=== PATIENT | male | born 1970 | race Caucasian/White ===

== ENCOUNTER 2024-03-16 23:44 | Emergency (ER) | payer BC ==
[~2024-03-16] VITALS: Ht 180.3 cm; Wt 129.3 kg
[2024-03-17 00:01] VITALS: BP_SYST 246; PULSE 105; RESP 20; TEMP 98.3; O2SAT 97
[2024-03-17] MEDS: LABETALOL HCL 20 MG/4 ML CARTRIDGE IVP ONE (00:22)
[2024-03-17 00:56] LABS: BARBITURATE, URINE NEGATIVE (NEG <=200); BASOPHILS # (AUTO) 0.1 K/uL (0.0-0.2); BASOPHILS % (AUTO) 0.9 % (0.0-2.0); BENZODIAZEPINE, URINE NEGATIVE (NEG <=150); EOSINOPHILS # (AUTO) 0.1 K/uL (0.0-0.4); EOSINOPHILS % (AUTO) 1.4 % (0.0-4.0); HEMATOCRIT 46.7 % (36-54); HEMOGLOBIN 16.3 g/dL (14.0-18.0); LYMPHOCYTES % (AUTO) 36.3 % (20.5-51.5); MEAN CORPUSCULAR HEMOGLOBIN 33 pg (27-31); MEAN CORPUSCULAR HGB CONC 35 % (32-36); MEAN CORPUSCULAR VOLUME 94 fL (79.0-98.0); METHAMPHETAMINES SCREEN,URINE NEGATIVE (NEG <=500); MONOCYTES # (AUTO) 0.6 K/uL (0.0-1.0); MONOCYTES % (AUTO) 7.9 % (1.7-9.3); NEUTROPHILS # (AUTO) 4.4 K/uL (1.8-7.7); NEUTROPHILS % (AUTO) 53.5 % (40.0-70.0); PLATELET COUNT (AUTO) 188 K/uL (130-430); RED BLOOD CELL COUNT(AUTO) 4.98 MIL/uL (4.2-6.2); RED CELL DISTRIBUTION WIDTH 13.6 % (9.0-15.0); URINE AMPHETAMINE NEGATIVE (NEG <=500); URINE METHADONE NEGATIVE (NEG <=200); WHITE BLOOD COUNT (AUTO) 8.2 K/uL (4.8-10.8)
[2024-03-17 00:57] LABS: CANNABINOID, URINE NEGATIVE (NEG <=50); COCAINE, URINE NEGATIVE (NEG <=150); OPIATE, URINE NEGATIVE (NEG <=100); PHENCYCLIDINE SCREEN,URINE NEGATIVE (NEG <=25); UR TRICYCLIC ANTIDEPRESSANTS NEGATIVE (NEG <=300); URINE OXYCODONE SCREEN NEGATIVE (NEG <=100)
[2024-03-17 01:06] LABS: ANION GAP 13 (5-15); CALCIUM 9.8 mg/dL (8.4-11.0); CARBON DIOXIDE 25 mmol/L (23-29); CHLORIDE 102 mmol/L (98-107); CREATININE 1.05 mg/dL (0.55-1.30); GFR AFRICAN AMERICAN 95 mL/min (>90); GFR NON AFRICAN-AMERICAN 78 mL/min (>90); GLUCOSE 130 mg/dL (74-106); POTASSIUM 3.6 mmol/L (3.5-5.1); SODIUM SERUM 140 mmol/L (136-145); UREA NITROGEN, BLOOD 16 mg/dL (8-21)
[2024-03-17] MEDS ORDERED: NOR10 PO (01:54)
[2024-03-17 02:24] VITALS: BP_SYST 159
== END 2024-03-17 02:15 | disposition home or self-care (01) ==
LOC: SED 23:44
DX: I16.0 Hypertensive urgency (principal); R00.0 Tachycardia, unspecified
CPT/HCPCS: 36415; 80048; 80307; 83880; 84484; 85025; 93005; 96374; 99284